=== PATIENT | male | born 1985 | race African-American/Black ===

== ENCOUNTER → 2016-11-26 | Day surgery (SDC) | payer OTHER ==
[2016-11-26 12:07] LABS: HCT 43.3 % (42.0-52.0); HGB 14.3 g/dl (13.2-18.0); MCH 29.3 pg (25.0-31.0); MCV 88.7 fL (78.0-100.0); MPV 11.3 fL (6.0-9.5); RBC 4.88 M/uL (4.70-6.00); RDW 13.1 % (11.5-14.0)
[2016-11-26 12:30] LABS: ALBUMIN 4.6 g/dL (3.5-5.0); BILIRUBIN - TOTAL 0.3 mg/dL (0.1-1.0); CREATININE 0.9 mg/dL (0.7-1.2); TOTAL PROTEIN 7.6 g/dL (6.4-8.3)
== END | disposition home or self-care (01) ==
LOC: FAS 11:25
PROVIDERS: Surgery
DX: L72.9 Follicular cyst of the skin and subcutaneous tissue, unspecified (principal); K50.90 Crohn's disease, unspecified, without complications; F17.210 Nicotine dependence, cigarettes, uncomplicated; F12.20 Cannabis dependence, uncomplicated; K21.0 Gastro-esophageal reflux disease with esophagitis; K29.70 Gastritis, unspecified, without bleeding; K64.9 Unspecified hemorrhoids; K44.9 Diaphragmatic hernia without obstruction or gangrene; Z83.42 Family history of familial hypercholesterolemia; Z82.0 Family history of epilepsy and other diseases of the nervous system; Z80.0 Family history of malignant neoplasm of digestive organs; Z79.899 Other long term (current) drug therapy; Z98.890 Other specified postprocedural states
CPT/HCPCS: 36415; 80053; 88304; J1100; J1885; J2405; J2704; J3010

== ENCOUNTER 2016-12-05 13:24 | Emergency (ER) | payer OTHER | END 2016-12-05 16:20 | disposition home or self-care (01) | LOC: FER 13:24 | DX: T81.30XA Disruption of wound, unspecified, initial encounter (principal) | CPT/HCPCS: 99283 ==